=== PATIENT | female | born 1945 ===

== ENCOUNTER 2016-10-15 07:54 | Day surgery (SDC) | payer MEDICARE, OTHER ==
[2016-10-15 08:17] VITALS: BMI 28.8
[2016-10-15] MEDS ORDERED: Lactated Ringer's 500 ML IV ONE ×2 (10:51)
[2016-10-15] MEDS ORDERED: Propofol 10 mg/ml Inj (20 ML) ONE (10:52)
--- NOTE | 2016-10-15 10:56 | CP.SDSHP ---
Same Day Surgery H & P - History Proposed Procedure: COLONSCOPY Pre-Op Diagnosis: SEE NOTES - Previous Medical/Surgical History Cardiac: Hypertension Endocrine/Metabolic: Thyroid Disease, Diabetes, Other Neuro: Backaches Pain: 4.Moderate Pain - Allergies Allergies: Allergies isopropyl alcohol Allergy (Verified 08/14/15 17:09) SWELLING Penicillins Allergy (Verified 08/14/15 17:09) SWELLING Sulfa (Sulfonamide Antibiotics) Allergy (Verified 08/14/15 17:09) SWELLING valsartan [From Diovan] Allergy (Verified 08/14/15 17:09) RASH - Physical Exam General Appearance: N Vital Signs: Vital Signs 10/15/16 08:53 Temperature 97.1 F L Pulse Rate 66 Respiratory 17 Rate Blood Pressure 132/78 O2 Sat by Pulse 99 Oximetry Mental Status: Alert & Oriented x3 Neuro: WNL Heart: Other Lungs: WNL GI: Other - {Optional Preform as Required} Breast: WNL Abdomen: Other Rectal: Other Integument: WNL : WNL Ortho: Other ENT: WNL - Impression Pt. Evaluated Today:Candidate for Anesthesia & Procedure: Yes - Date & Time Time: 10:55 Short Stay Discharge - Short Stay Discharge Admitting Diagnosis/Reason for Visit: CHANGE IN BOWEL HABITS Disposition: HOME/ ROUTINE
[2016-10-15 11:21] VITALS: TEMP 97.3
[2016-10-15] MEDS ORDERED: Belladonna-Phenobarbital PO ONE (11:40)
[2016-10-15 13:42] VITALS: O2SAT 100
[2016-10-15 13:44] VITALS: RESP 18
[2016-10-15 13:45] VITALS: BP 136/69; PULSE 56
== END 2016-10-15 12:20 | disposition home or self-care (01) ==
LOC: C.ENDO 07:54
PROVIDERS: ATTEND Specialist
DX: K52.9 Noninfective gastroenteritis and colitis, unspecified (principal); K64.8 Other hemorrhoids; Z88.0 Allergy status to penicillin; I10 Essential (primary) hypertension; K57.90 Diverticulosis of intestine, part unspecified, without perforation or abscess without bleeding
CPT/HCPCS: 45380; 82948; 88305; J2704; J7120

== ENCOUNTER 2016-10-17 07:56 | Day surgery (SDC) | payer MEDICARE, OTHER ==
[2016-10-17 08:35] VITALS: BMI 27.9
--- NOTE | 2016-10-17 08:59 | CP.SDSHP ---
Same Day Surgery H & P - History Proposed Procedure: EGD Pre-Op Diagnosis: SEE NOTES - Previous Medical/Surgical History Cardiac: Hypertension Endocrine/Metabolic: Thyroid Disease, Diabetes, Other Misc: Other Pain: 4.Moderate Pain Previous Surgical History: EYE SX. - Allergies Allergies: Allergies isopropyl alcohol Allergy (Verified 08/14/15 17:09) SWELLING Penicillins Allergy (Verified 08/14/15 17:09) SWELLING Sulfa (Sulfonamide Antibiotics) Allergy (Verified 08/14/15 17:09) SWELLING valsartan [From Diovan] Allergy (Verified 08/14/15 17:09) RASH - Physical Exam General Appearance: N Vital Signs: Vital Signs 10/17/16 08:34 Temperature 97.6 F Pulse Rate 65 Respiratory 19 Rate Blood Pressure 128/61 O2 Sat by Pulse 99 Oximetry Mental Status: Alert & Oriented x3 Neuro: WNL Heart: Other Lungs: WNL GI: Other - {Optional Preform as Required} Breast: WNL Abdomen: Other Rectal: Other Integument: WNL : WNL Ortho: Other ENT: WNL - Impression Pt. Evaluated Today:Candidate for Anesthesia & Procedure: Yes - Date & Time Time: 08:58 Short Stay Discharge - Short Stay Discharge Admitting Diagnosis/Reason for Visit: FUNCTIONAL DYSPEPSIA Disposition: HOME/ ROUTINE
[2016-10-17] MEDS ORDERED: Lactated Ringer's 500 ML IV ONE ×2 (09:00)
[2016-10-17] MEDS ORDERED: Propofol 10 mg/ml Inj (20 ML) ONE (09:04)
[2016-10-17] MEDS ORDERED: Midazolam 2 MG/2 ML VIAL ONE (09:04)
[2016-10-17] MEDS ORDERED: Pantoprazole 40 mg EC Tab PO ONE (09:30)
[2016-10-17 10:04] VITALS: RESP 18
[2016-10-17 10:58] VITALS: BP 116/63; PULSE 54; TEMP 97.6; O2SAT 98
== END 2016-10-17 10:00 | disposition home or self-care (01) ==
LOC: C.ENDO 07:56
PROVIDERS: ATTEND Specialist
DX: B37.81 Candidal esophagitis (principal); K29.70 Gastritis, unspecified, without bleeding; K44.9 Diaphragmatic hernia without obstruction or gangrene; B96.81 Helicobacter pylori [H. pylori] as the cause of diseases classified elsewhere
CPT/HCPCS: 43239; 82948; 88305; J2001; J2250; J2704; J3010; J7120

== ENCOUNTER 2018-03-11 09:06 | Outpatient (CLI) | payer MEDICARE, OTHER | END 2018-03-11 09:07 | disposition home or self-care (01) | LOC: C.MAMMO 09:07 ==